=== PATIENT | female | born 1965 | race Caucasian/White ===

== ENCOUNTER → 2018-09-26 10:47 | Outpatient (CLI) | payer OTHER, SELFPAY ==
--- NOTE | 2018-09-26 10:51 | DI.RAD.S_ITS ---
PROCEDURE: XR CHEST 2V INDICATIONS: cough and LLL rales/wheezing TECHNIQUE: 2 views of the chest were acquired. COMPARISON: None. FINDINGS: Surgical changes and devices: None. Lungs and pleura: No pleural effusions or pneumothorax. Lungs are abnormal with an interstitial prominence, mild in severity, potentially a manifestation of prior smoking. Note is made on the lateral view of large lung volumes. Mediastinum: Mediastinal contours are normal. Heart size is normal. Bones and chest wall: No suspicious bony abnormalities. Soft tissues appear unremarkable. IMPRESSION: Large lung volumes, mild interstitial prominence, and an area of consolidative pneumonia is not seen. Dictated by: Tone Mckeon M.D. on 09/26/2018 at 11:26 Approved by: Tone Mckeon M.D. on 09/26/2018 at 11:27
== END ==
PROVIDERS: Visit Provider Physician Assistant
DX: R05 Cough (principal); R06.2 Wheezing; R09.89 Other specified symptoms and signs involving the circulatory and respiratory systems
CPT/HCPCS: 71046

== ENCOUNTER → 2019-09-02 19:55 | Outpatient (CLI) | payer OTHER, SELFPAY | PROVIDERS: Visit Provider Physician Assistant | DX: M54.5 Low back pain (principal) | CPT/HCPCS: 87086 ==

== ENCOUNTER → 2019-09-14 15:16 | Outpatient (ROUT) | payer OTHER, SELFPAY ==
[2019-09-14 19:11] LABS: Add Manual Diff / Slide Review NO; Basophils Absolute Auto 100 /uL (0-100); Basophils Percent Auto 0.7 % (0-2); Eosinophils Absolute Auto 200 /uL (0-450); Eosinophils Percent Auto 2.4 % (2-4); Hematocrit 40.5 % (36-46); Lymphocytes Absolute Auto 2500 /uL (1100-4500); Lymphocytes Percent Auto 30.5 % (25-40); Mean Corpuscular HGB Conc 34.6 % (30-36); Mean Corpuscular Hemoglobin 32.2 PG (26-34); Mean Corpuscular Volume 92.9 fL (80-100); Monocytes Absolute Auto 500 /uL (0-900); Monocytes Percent Auto 5.9 % (3-14); Neutrophils Absolute Auto 5000 /uL (1500-7000); Neutrophils Percent Auto 60.5 % (50-75); Platelet Count 343 X10^3/uL (150-400); Red Blood Cell Count 4.36 X10^6/uL (4.0-5.2); Red Cell Distribution Width 13.4 % (11.6-14.8); White Blood Cell Count 8.3 X10^3/uL (4.5-11.0)
[2019-09-14 19:15] LABS: Alanine Aminotransferase 29 IU/L (<35); Albumin 4.6 g/dL (3.5-5.0); Albumin Globulin Ratio 1.9 (1.0-2.8); Alkaline Phosphatase 72 U/L (38-126); Aspartate Aminotransferase 26 IU/L (14-36); BUN Creatinine Ratio 36.7 (6-22); Bilirubin Total 0.4 mg/dL (0.2-1.3); Blood Urea Nitrogen 22 mg/dL (7-17); Calcium 10.5 mg/dL (8.4-10.2); Carbon Dioxide 29 mmol/L (22-32); Chloride 102 mmol/L (98-107); Estimated Glomerular Filt Rate > 60.0 mL/min (>60); Globulin 2.4 g/dL (1.7-4.1); Glucose 103 mg/dL (70-100); HEMOLYSIS < 15 (0-50); Sodium 141 mmol/L (137-145)
[2019-09-14 19:46] LABS: Cancer Antigen 125 < 6 U/mL (0-35)
== END ==
PROVIDERS: Visit Provider Physician Assistant
DX: R39.9 Unspecified symptoms and signs involving the genitourinary system (principal); R10.2 Pelvic and perineal pain; R14.0 Abdominal distension (gaseous)
CPT/HCPCS: 80053; 85025; 86304; 87086

== ENCOUNTER → 2019-09-15 07:01 | Outpatient (CLI) | payer OTHER, SELFPAY ==
--- NOTE | 2019-09-15 | DI.US.S_ITS ---
PROCEDURE: US PELVIC COMPLETE INDICATIONS: PAIN TECHNIQUE: Real-time scanning was performed of the pelvic organs, with image documentation. Additional endovaginal scanning was necessary due to incomplete visualization of the adnexal and endometrial structures by transabdominal scanning. COMPARISON: None. FINDINGS: Transabdominal scanning: Limited scanning through the kidneys shows no hydronephrosis. No pathologic free abdominal or pelvic fluid. Endovaginal scanning: Uterus: The uterus is surgically absent. Ovaries: The ovaries are nonvisualized. IMPRESSION: Markedly limited study. If further characterization of the pelvis is warranted, gynecologic protocol MRI could be used. Dictated by: Julissa Herbert M.D. on 09/15/2019 at 9:55 Approved by: Julissa Herbert M.D. on 09/15/2019 at 9:56
--- NOTE | 2019-09-15 | DI.US.S_ITS ---
PROCEDURE: US ABDOMEN COMPLETE INDICATIONS: PAIN TECHNIQUE: Real-time scanning was performed of the abdominal and retroperitoneal organs, with image documentation. COMPARISON: None. FINDINGS: Liver: Liver is normal in size and homogeneous in echotexture. Gallbladder: The lateral wall measures 1.1 mm in diameter. No stones, sludge, pericholecystic fluid, or sonographic Ham sign. Biliary ducts: Intrahepatic bile ducts are non-dilated. Extrahepatic bile duct caliber measures 6.1 mm. Normal is 6-7 mm or less in diameter, or 10 mm or less post-cholecystectomy. Pancreas: Visualized portions of the pancreas are sonographically normal. Spleen: Spleen is normal in size and homogeneous in echotexture. Kidneys: Kidneys are normal in size and echotexture. Right kidney measures 11.4 cm long; left kidney measures 10.6 cm long. No hydronephrosis. There is a 1.5 cm nonobstructing stone within the inferior right renal collecting system and a 0.9 cm nonobstructing stone within the left inferior collecting system. Aorta: Visualized aorta is normal in caliber at less than 3 cm. Iliacs: Proximal common iliac arteries are normal in caliber at less than 2.5 cm. IVC: Intrahepatic inferior vena cava is patent. Miscellaneous: No free abdominal fluid. IMPRESSION: 1. Bilateral nonobstructing nephrolithiasis. 2. No hydronephrosis. Dictated by: Julissa Herbert M.D. on 09/15/2019 at 9:54 Approved by: Julissa Herbert M.D. on 09/15/2019 at 9:55
== END ==
PROVIDERS: PCP Physician Assistant; Visit Provider Physician Assistant
DX: R10.2 Pelvic and perineal pain (principal); N20.0 Calculus of kidney; Z90.710 Acquired absence of both cervix and uterus
CPT/HCPCS: 76700; 76830; 76856

== ENCOUNTER → 2019-10-09 14:52 | Outpatient (ROUT) | payer OTHER, SELFPAY ==
[2019-10-09 15:26] LABS: Add Manual Diff / Slide Review NO; Basophils Absolute Auto 0 /uL (0-100); Basophils Percent Auto 0.9 % (0-2); Eosinophils Absolute Auto 200 /uL (0-450); Eosinophils Percent Auto 2.8 % (2-4); Hematocrit 41.3 % (36-46); Lymphocytes Absolute Auto 1900 /uL (1100-4500); Lymphocytes Percent Auto 34.7 % (25-40); Mean Corpuscular HGB Conc 33.9 % (30-36); Mean Corpuscular Hemoglobin 31.9 PG (26-34); Monocytes Absolute Auto 400 /uL (0-900); Monocytes Percent Auto 7.5 % (3-14); Neutrophils Absolute Auto 3000 /uL (1500-7000); Neutrophils Percent Auto 54.1 % (50-75); Platelet Count 287 X10^3/uL (150-400); Red Blood Cell Count 4.39 X10^6/uL (4.0-5.2); Red Cell Distribution Width 13.4 % (11.6-14.8); White Blood Cell Count 5.5 X10^3/uL (4.5-11.0)
[2019-10-09 15:32] LABS: Alanine Aminotransferase 31 IU/L (<35); Albumin 4.6 g/dL (3.5-5.0); Albumin Globulin Ratio 1.7 (1.0-2.8); Alkaline Phosphatase 54 U/L (38-126); Aspartate Aminotransferase 25 IU/L (14-36); Bilirubin Total 0.5 mg/dL (0.2-1.3); Blood Urea Nitrogen 19 mg/dL (7-17); Calcium 9.9 mg/dL (8.4-10.2); Carbon Dioxide 27 mmol/L (22-32); Chloride 102 mmol/L (98-107); Cholesterol 203 mg/dL (140-199); Estimated Glomerular Filt Rate > 60.0 mL/min (>60); Globulin 2.7 g/dL (1.7-4.1); Glucose 98 mg/dL (70-100); HDL Cholesterol 79 mg/dL (40-60); HEMOLYSIS 16 (0-50); LDL Cholesterol Calculated 114 mg/dL (<100); Potassium 4.6 mmol/L (3.4-5.1); Sodium 141 mmol/L (137-145); Total Protein 7.3 g/dL (6.3-8.2); Triglycerides 49 mg/dL (35-150)
[2019-10-09 15:53] LABS: Vitamin D 25 Hydroxy (D3) 45.8 ng/mL (30.0-100.0)
== END ==
PROVIDERS: PCP Physician Assistant; Visit Provider Physician Assistant
DX: R53.83 Other fatigue (principal); E78.2 Mixed hyperlipidemia; E55.9 Vitamin D deficiency, unspecified
CPT/HCPCS: 80053; 80061; 82306; 84443; 85025

== ENCOUNTER → 2020-03-29 14:31 | Outpatient (CLI) | payer OTHER, SELFPAY ==
[2020-03-29 14:41] LABS: Bacteria Urine None Seen
[2020-03-29 15:11] LABS: Appearance Urine UA CLEAR; Bilirubin Urine UA NEGATIVE (NEGATIVE); Color Urine UA YELLOW; Glucose Urine UA NEGATIVE (Negative); Ketones Urine UA NEGATIVE (NEGATIVE); Leukocyte Esterase Urine UA TRACE (NEGATIVE); Nitrite Urine UA NEGATIVE (Negative); Occult Blood Urine UA TRACE-LYSED (Negative); Protein Urine UA NEGATIVE (Negative); Urobilinogen Urine UA 0.2 E.U./dL (0.2)
[2020-03-29 15:15] LABS: RBC Urine 0-1/HPF (0-5/HPF); Squamous Epithelial Cell Urine 5-10 /HPF (0-5/HPF); WBC Urine 0-1/HPF (0-5/HPF)
== END ==
PROVIDERS: PCP Physician Assistant; Referring Provider Physician Assistant; Visit Provider Physician Assistant
DX: N30.00 Acute cystitis without hematuria (principal)
CPT/HCPCS: 81001; 87086

== ENCOUNTER → 2020-04-05 18:34 | Outpatient (ROUT) | payer OTHER, SELFPAY ==
[2020-04-05 19:42] LABS: Alanine Aminotransferase 22 IU/L (<35); Albumin 4.8 g/dL (3.5-5.0); Alkaline Phosphatase 65 U/L (38-126); Aspartate Aminotransferase 23 IU/L (14-36); BUN Creatinine Ratio 35.8 (6-22); Bilirubin Total 0.5 mg/dL (0.2-1.3); Blood Urea Nitrogen 19 mg/dL (7-17); Calcium 10.3 mg/dL (8.4-10.2); Carbon Dioxide 22 mmol/L (22-32); Chloride 106 mmol/L (98-107); Estimated Glomerular Filt Rate > 60.0 mL/min (>60); Globulin 2.4 g/dL (1.7-4.1); Glucose 85 mg/dL (70-100); HEMOLYSIS < 15 (0-50); Magnesium 1.9 mg/dL (1.6-2.3); Potassium 4.2 mmol/L (3.4-5.1); Sodium 138 mmol/L (137-145); Total Protein 7.2 g/dL (6.3-8.2)
[2020-04-05 19:44] LABS: C-Reactive Protein Quant < 0.5 mg/dL (<1.0)
[2020-04-05 20:07] LABS: Add Manual Diff / Slide Review NO; Basophils Absolute Auto 0 /uL (0-100); Basophils Percent Auto 0.8 % (0-2); Eosinophils Absolute Auto 200 /uL (0-450); Eosinophils Percent Auto 3.5 % (2-4); Hematocrit 43.7 % (36-46); Hemoglobin 14.4 g/dL (12.0-16.0); Lymphocytes Absolute Auto 2000 /uL (1100-4500); Lymphocytes Percent Auto 32.3 % (25-40); Mean Corpuscular HGB Conc 33.1 % (30-36); Mean Corpuscular Hemoglobin 31.1 PG (26-34); Mean Corpuscular Volume 94.1 fL (80-100); Monocytes Absolute Auto 400 /uL (0-900); Monocytes Percent Auto 6.4 % (3-14); Neutrophils Absolute Auto 3500 /uL (1500-7000); Platelet Count 311 X10^3/uL (150-400); Red Blood Cell Count 4.64 X10^6/uL (4.0-5.2); White Blood Cell Count 6.1 X10^3/uL (4.5-11.0)
[2020-04-05 20:48] LABS: Erythrocyte Sedimentation Rate 2 MM/HR (0-20)
== END ==
PROVIDERS: PCP Physician Assistant; Visit Provider Physician Assistant
DX: R10.9 Unspecified abdominal pain (principal); N20.0 Calculus of kidney; R00.2 Palpitations; R51 Headache; M79.10 Myalgia, unspecified site
CPT/HCPCS: 80053; 83735; 84443; 85025; 85651; 86140

== ENCOUNTER → 2020-04-09 09:30 | Outpatient (CLI) | payer OTHER, SELFPAY ==
--- NOTE | 2020-04-09 | DI.US.S_ITS ---
PROCEDURE: US ABDOMEN COMPLETE INDICATIONS: Unspecified abdominal pain TECHNIQUE: Real-time scanning was performed of the abdominal and retroperitoneal organs, with image documentation. COMPARISON: [facility], , US ABDOMEN COMPLETE, 09/15/2019, 7:20. FINDINGS: Liver: Liver is normal in size and homogeneous in echotexture. Gallbladder: No findings of gallstones or sludge are seen. The gallbladder wall is not thickened, measuring 3 mm or less. No specific pericholecystic fluid is seen. The sonographic Ham sign is negative. Biliary ducts: Intrahepatic bile ducts are non-dilated. Extrahepatic bile duct caliber measures 7 mm. Normal is 6-7 mm or less in diameter, or 10 mm or less post-cholecystectomy. Pancreas: Visualized portions of the pancreas are sonographically normal. Spleen: Spleen is normal in size and homogeneous in echotexture. Kidneys: Kidneys are normal in size and echotexture. Right kidney measures 11.4 cm long; left kidney measures 10.6 cm long. No hydronephrosis. No solid masses. On the left at the inferior pole, there is a 1 cm shadowing stone seen. On the right, there is a 1.6 cm flattening stone seen inferiorly. Aorta: Visualized aorta is normal in caliber at less than 3 cm. Iliacs: Proximal common iliac arteries are normal in caliber at less than 2.5 cm. IVC: Intrahepatic inferior vena cava is patent. Miscellaneous: No free abdominal fluid. IMPRESSION: Bilateral nonobstructing kidney stones are seen. No hydronephrosis. If it would be helpful for clinical management decision making, please consider a dedicated noncontrast CT of the abdomen and pelvis for further evaluation. The gallbladder demonstrates a normal sonographic appearance. No biliary dilatation is seen. Dictated by: Kadeem Camacho M.D. on 04/09/2020 at 10:17 Approved by: Kadeem Camacho M.D. on 04/09/2020 at 10:19
== END ==
PROVIDERS: PCP Physician Assistant; Referring Provider Physician Assistant; Visit Provider Physician Assistant
DX: R10.9 Unspecified abdominal pain (principal); N20.0 Calculus of kidney
CPT/HCPCS: 76700

== ENCOUNTER → 2020-05-22 14:29 | Outpatient (CLI) | payer OTHER, SELFPAY ==
--- NOTE | 2020-05-22 14:31 | DI.CT.S_ITS ---
PROCEDURE: CT ABDOMEN PELVIS WO CON INDICATIONS: Calculus of kidney TECHNIQUE: Noncontrast 5 mm thick sections acquired from the diaphragms to the symphysis. 5 mm coronal and sagittal reformats were then performed. For radiation dose reduction, the following was used: automated exposure control, adjustment of mA and/or kV according to patient size. COMPARISON: [facility], , US ABDOMEN COMPLETE, 04/09/2020, 9:56. FINDINGS: Image quality: Excellent. ABDOMEN: Lung bases: Lung bases are clear. Heart size is normal. Solid organs: Liver is normal in size. Gallbladder appears contracted . Pancreas is normal in contours. Spleen is normal in size. No adrenal nodules. Kidneys are normal in size, without hydronephrosis but there is bilateral nephrolithiasis best seen at the lower 3rd of each kidney within the collecting system, nonobstructive, where the largest calculus on the right measures up to 1.6 cm and on the left measures up to 0.5 cm. Additional smaller calculi on the right are present more superiorly, measuring 1 mm in diameter and also nonobstructive.. Peritoneum and bowel: Unenhanced bowel loops demonstrate normal wall thickness and caliber. No free fluid or air. Nodes and vessels: No retroperitoneal or mesenteric adenopathy by size criteria. Aorta and inferior vena cava are normal in caliber. Miscellaneous: No ventral hernias. PELVIS: Genitourinary: Bladder wall thickness is normal. Miscellaneous: No inguinal hernias or adenopathy. Bones: No suspicious bony lesions. No vertebral body compression fractures. IMPRESSION: Finding of bilateral renal collecting system calculi, larger on the right than the left as discussed, none of which appear to produce obstructive influence on the collecting system. No ureteral or bladder calculus is found. Dictated by: Tone Mckeon M.D. on 05/22/2020 at 16:30 Approved by: Tone Mckeon M.D. on 05/22/2020 at 16:34
== END ==
PROVIDERS: PCP Physician Assistant; Referring Provider Physician Assistant; Visit Provider Physician Assistant
DX: N20.0 Calculus of kidney (principal); R10.9 Unspecified abdominal pain; Z87.448 Personal history of other diseases of urinary system
CPT/HCPCS: 74176; 81002; 99214

== ENCOUNTER → 2020-06-27 11:48 | Outpatient (CLI) | payer OTHER, SELFPAY ==
--- NOTE | 2020-06-27 11:50 | DI.RAD.S_ITS ---
PROCEDURE: XR KUB INDICATIONS: kidney stone TECHNIQUE: One view of the abdomen acquired. COMPARISON: [facility], CT, CT ABDOMEN PELVIS WO CON, 05/22/2020, 14:33. FINDINGS: Surgical changes and devices: None. Bowel: Bowel gas pattern is normal. Soft tissues: 2 calcifications projected over the right kidney, largest measuring 16 mm. Solitary calcification projected over the mid pole of the left kidney measuring 9 mm.. Visualized solid organ contours appear normal in size. Bones: No suspicious bony lesions. IMPRESSION: Bilateral renal calcifications similar to prior CT scan dated 05/22/2020. Dictated by: Robbie Roger [facility] Interpreted: Tone Wilkinson MD on 06/27/2020 at 16:14 Approved by: Tone Wilkinson M.D. on 06/27/2020 at 16:31
[2020-06-27 13:21] LABS: Calcium 9.5 mg/dL (8.4-10.2); Uric Acid 4.1 mg/dL (2.5-6.2)
[2020-06-28 10:29] LABS: Parathyroid Hormone Int 35 pg/mL (15-65)
== END ==
PROVIDERS: PCP Physician Assistant; Referring Provider Specialist; Visit Provider Specialist
DX: N20.0 Calculus of kidney (principal)
CPT/HCPCS: 36415; 74018; 82310; 83970; 84550

== ENCOUNTER 2021-01-02 10:46 | Emergency (ER) | payer OTHER, SELFPAY ==
[2021-01-02] VITALS (13 sets, daily range): BP systolic 122–160; BP diastolic 58–79; PULSE 57–72; RESP 12–23; TEMP 37.3; O2SAT 95–98; BMI 32.5
--- NOTE | 2021-01-02 11:03 | DI.RAD.S_ITS ---
PROCEDURE: XR CHEST 1V INDICATIONS: chest pain TECHNIQUE: One view of the chest was acquired. COMPARISON: [facility], CR, XR CHEST 2V, 09/26/2018, 11:04. FINDINGS: Surgical changes and devices: Stable postsurgical changes from prior anterior cervical discectomy and fusion. Lungs and pleura: Lungs are clear. No pleural effusions or pneumothorax. Mediastinum: Mediastinal contours appear normal. Heart size is normal. Bones and chest wall: No suspicious bony lesions. Overlying soft tissues appear unremarkable. IMPRESSION: Chest without acute cardiopulmonary abnormalities or focal airspace disease. Dictated by: Vin Stanton M.D. on 01/02/2021 at 10:39 Approved by: Vin Stanton M.D. on 01/02/2021 at 10:40
[2021-01-02 11:09] LABS: Add Manual Diff / Slide Review NO; Basophils Absolute Auto 100 /uL (0-100); Eosinophils Absolute Auto 400 /uL (0-450); Eosinophils Percent Auto 5.9 % (2-4); Hematocrit 41.7 % (36-46); Hemoglobin 14.1 g/dL (12.0-16.0); Lymphocytes Absolute Auto 2100 /uL (1100-4500); Lymphocytes Percent Auto 29.4 % (25-40); Mean Corpuscular HGB Conc 33.8 % (30-36); Mean Corpuscular Hemoglobin 31.8 PG (26-34); Mean Corpuscular Volume 94.3 fL (80-100); Monocytes Absolute Auto 600 /uL (0-900); Monocytes Percent Auto 7.8 % (3-14); Neutrophils Absolute Auto 4000 /uL (1500-7000); Neutrophils Percent Auto 55.9 % (50-75); Platelet Count 295 X10^3/uL (150-400); Red Blood Cell Count 4.42 X10^6/uL (4.0-5.2); White Blood Cell Count 7.2 X10^3/uL (4.5-11.0)
[2021-01-02 11:14] LABS: INR 1.1 (0.9-1.3); Prothrombin Time 12.1 SECONDS (10.1-12.7)
[2021-01-02 11:17] LABS: PTT Partial Thromboplastin Tim 36 SECONDS (26.4-36.2)
[2021-01-02 11:18] LABS: Alanine Aminotransferase 22 IU/L (<35); Albumin 4.9 g/dL (3.5-5.0); Albumin Globulin Ratio 1.8 (1.0-2.8); Alkaline Phosphatase 52 U/L (38-126); Aspartate Aminotransferase 25 IU/L (14-36); BUN Creatinine Ratio 35.7 (6-22); Bilirubin Total 0.3 mg/dL (0.2-1.3); Blood Urea Nitrogen 20 mg/dL (7-17); Calcium 10.1 mg/dL (8.4-10.2); Carbon Dioxide 23 mmol/L (22-32); Chloride 105 mmol/L (98-107); Creatine Kinase 58 U/L (30-135); Estimated Glomerular Filt Rate > 60.0 mL/min (>60); Globulin 2.8 g/dL (1.7-4.1); Glucose 106 mg/dL (70-100); HEMOLYSIS < 15 (0-50); Lipase 188 U/L (23-300); Potassium 4.2 mmol/L (3.4-5.1); Sodium 139 mmol/L (137-145); Total Protein 7.7 g/dL (6.3-8.2)
[2021-01-02 11:29] LABS: Troponin I < 0.012 ng/mL (0.01-0.034)
--- NOTE | 2021-01-02 11:52 | PC.NURSE ---
patient has a history of anxiety. She has had significant stresses going on in her personal life. She also has seasonal allergies and is taking allergy medication. She was told by the clinic today that because she is having chest tightness and a runny nose that she needed to come to the ER. She denies chest pain, pressure but does state she has tightness from anxiety. Her lungs sound clear in all kennedy and does not have a cough or fever.
[2021-01-02 12:38] LABS: COVID19 -Nasal RAPID Negative (Negative)
[2021-01-02 13:31] LABS: Troponin I < 0.012 ng/mL (0.01-0.034)
--- NOTE | 2021-01-02 13:32 | ED.CHESTPAIN ---
HPI - Chest Pain General Chief Complaint: Chest Pain Stated Complaint: headache/ chest pressure /tired Time Seen by Provider: 01/02/21 13:32 Source: patient Mode of arrival: Ambulatory Limitations: no limitations History of Present Illness HPI narrative: This is a 55-year-old female comes in with complaint of anxiety, fatigue, chest pressure, headache that attempted to go see her primary care physician for schedule appointment today. When she went to check asked if she had any COVID symptoms and she has had a runny nose which she attributes to her regular seasonal allergies. Mild headache, some chest tightness for the last 2 weeks and 15. She has not had any cough cold or congestion. She denies any shortness of breath. She states the pressure seems to be worse when she is very anxious and if she is distracted she does not notice it. She has also had some insomnia. She has also had some intermittent heartburn. She denies any nausea, no vomiting, no issues with bowel movements or urination. She takes fluoxetine jail without any recent medication changes. She was going to see her physician today to discuss if they need to adjust her medications or add something for anxiety or sleep. She has a history of partial hysterectomy, C3 through C7 fusion, carpal tunnel surgery. No tobacco, 1-2 alcoholic drinks daily which she states has increased from her norm. And no illicit. Patient states that she realizes her stressors which are external and causing her anxiety will resolve but she has had some difficulty with her anxiety. Related Data Home Medications Medication Instructions Recorded Confirmed ACETAMINOPHEN (#TYLENOL) 1,000 mg PO Q4HP #0 02/21/11 10/17/20 fluoxetine [Prozac] 20 mg PO Q DAY #0 02/21/11 10/17/20 ibuprofen #0 02/21/11 10/17/20 pseudoephedrine HCl 30 mg PO Q4HP #0 02/21/11 10/17/20 fluticasone propionate 50 2 spray NASAL DAILY PRN 09/26/18 10/17/20 mcg/actuation nasal spray,suspension guaifenesin 600 mg tablet, 1,200 mg PO Q12H 09/26/18 10/17/20 extended release 12 hr magnesium 30 mg tablet 30 mg PO DAILY 05/22/20 10/17/20 Previous Rx's Medication Instructions Recorded potassium citrate 10 mEq (1,080 10 meq PO TID #270 tab 12/03/20 mg) tablet,extended release hydroxyzine HCl 25 mg PO BEDTIME PRN #14 tab 01/02/21 Allergies Allergy/AdvReac Type Severity Reaction Status Date / Time Penicillins Allergy Mild I got Verified 01/02/21 11:00 really sick Review of Systems Review of Systems ROS Unobtainable: All systems reviewed & are unremarkable except as noted in HPI and below Patient History Medical History Bilateral nephrolithiasis Calcium nephrolithiasis Depression History of nephrolithiasis History of renal colic Kidney stones Nephrolithiasis Recurrent sinusitis Surgical History H/O section H/O: hysterectomy Social History Smoking Status: Never smoker Smoking Status: Never smoker alcohol intake frequency: holidays/special occasions only Substance Use Type: does not use Exam Narrative Exam Narrative: GENERAL: Alert and oriented x three, well-nourished female in mild distress. HEENT: Head normocephalic, atraumatic, EOMI, pupils reactive, face symmetric, moist mucous membranes NECK: Supple, full range of motion CARDIOVASCULAR: Regular rate and rhythm without murmurs, rubs or gallops. Non reproducible chest pain. RESPIRATORY: Breath sounds equal bilaterally, no wheezes rales or rhonchi. ABDOMEN: Soft, nontender. Normoactive bowel sounds all 4 quadrants. No guarding or rebound, rigidity, no mass : No CVA tenderness EXTREMITIES: Normal range of motion, no clubbing or edema. Neurovascularly intact NEUROLOGICAL: Cranial nerves II through XII grossly intact. Moving all extremities SKIN: Warm, dry, no petechiae, no rashes or lesions. Initial Vital Signs Initial Vital Signs: Vital Signs Temperature 99.1 F 01/02/21 10:50 Pulse Rate 72 01/02/21 10:50 Respiratory Rate 15 01/02/21 10:50 Blood Pressure 160/79 H 01/02/21 10:50 Pulse Oximetry 98 01/02/21 10:50 Course Orders Ordered: ED Orders 01/02/21 10:57 Complete Blood Count AUTO DIFF Stat Comprehensive Metabolic Panel Stat Lipase Stat Partial Thromboplastin Time Stat Prothrombin Time INR Stat Troponin & CK Cardiac Panel Stat 01/02/21 11:03 XR chest 1V Stat EKG-12 Lead Stat 01/02/21 12:07 COVID19 -Nasal swab/Pre-Proc Stat 01/02/21 13:01 Trop I [Troponin I] Stat 01/02/21 13:47 Consult to [facility] - Telephone Diaphragm Assembler Stat Vital Signs Vital signs: Vital Signs - 8 hr 01/02/21 11:00 01/02/21 11:30 01/02/21 11:31 Pulse Rate 63 Respiratory Rate 23 14 Blood Pressure 122/58 L Pulse Oximetry 97 97 97 01/02/21 12:00 01/02/21 12:01 01/02/21 12:27 Pulse Rate 59 L 58 L 59 L Respiratory Rate 14 14 22 Blood Pressure 150/65 H 150/65 H Pulse Oximetry 95 96 96 01/02/21 12:30 01/02/21 13:00 01/02/21 13:30 Pulse Rate 58 L 57 L 59 L Respiratory Rate 14 15 14 Blood Pressure 135/65 147/69 H 140/67 Pulse Oximetry 96 98 97 01/02/21 14:00 01/02/21 14:30 Pulse Rate 58 L 60 Respiratory Rate 14 15 Blood Pressure 129/61 125/74 Pulse Oximetry 97 97 MDM - Chest Pain Lab Data Attestation: I reviewed the patient's lab results. Result diagrams: 01/02/21 10:57 01/02/21 10:57 Labs: Lab Results 01/02/21 01/02/21 01/02/21 Range/Units 10:57 10:57 10:57 WBC 7.2 (4.5-11.0) X10^3/uL RBC 4.42 (4.0-5.2) X10^6/uL Hgb 14.1 (12.0-16.0) g/dL Hct 41.7 (36-46) % MCV 94.3 (80-100) fL MCH 31.8 (26-34) PG MCHC 33.8 (30-36) % RDW 13.0 (11.6-14.8) % Plt Count 295 (150-400) X10^3/uL Neut % (Auto) 55.9 (50-75) % Lymph % (Auto) 29.4 (25-40) % Putnam % (Auto) 7.8 (3-14) % Eos % (Auto) 5.9 H (2-4) % Baso % (Auto) 1.0 (0-2) % Neut # (Auto) 4000 (7110-9598) /uL Lymph # (Auto) 2100 (6984-2756) /uL Putnam # (Auto) 600 (0-900) /uL Eos # (Auto) 400 (0-450) /uL Baso # (Auto) 100 (0-100) /uL PT 12.1 (10.1-12.7) SECONDS INR 1.1 (0.9-1.3) APTT 36 (26.4-36.2) SECONDS Sodium 139 (137-145) mmol/L Potassium 4.2 (3.4-5.1) mmol/L Chloride 105 (98-107) mmol/L Carbon Dioxide 23 (22-32) mmol/L BUN 20 H (7-17) mg/dL Creatinine 0.56 (0.52-1.04) mg/dL Estimated GFR > 60.0 (>60) mL/min BUN/Creatinine Ratio 35.7 H (6-22) Glucose 106 H (70-100) mg/dL Calcium 10.1 (8.4-10.2) mg/dL Total Bilirubin 0.3 (0.2-1.3) mg/dL AST 25 (14-36) IU/L ALT 22 (<35) IU/L Alkaline Phosphatase 52 (38-126) U/L Total Creatine Kinase 58 (30-135) U/L CK-MB (CK-2) TNP CK-MB (CK-2) Rel Index TNP Troponin I < 0.012 (0.01-0.034) ng/mL Total Protein 7.7 (6.3-8.2) g/dL Albumin 4.9 (3.5-5.0) g/dL Globulin 2.8 (1.7-4.1) g/dL Albumin/Globulin Ratio 1.8 (1.0-2.8) Lipase 188 (23-300) U/L SARS-CoV-2 (PCR) (Negative) 01/02/21 01/02/21 Range/Units 12:07 13:01 WBC (4.5-11.0) X10^3/uL RBC (4.0-5.2) X10^6/uL Hgb (12.0-16.0) g/dL Hct (36-46) % MCV (80-100) fL MCH (26-34) PG MCHC (30-36) % RDW (11.6-14.8) % Plt Count (150-400) X10^3/uL Neut % (Auto) (50-75) % Lymph % (Auto) (25-40) % Putnam % (Auto) (3-14) % Eos % (Auto) (2-4) % Baso % (Auto) (0-2) % Neut # (Auto) (1310-5433) /uL Lymph # (Auto) (9141-6636) /uL Putnam # (Auto) (0-900) /uL Eos # (Auto) (0-450) /uL Baso # (Auto) (0-100) /uL PT (10.1-12.7) SECONDS INR (0.9-1.3) APTT (26.4-36.2) SECONDS Sodium (137-145) mmol/L Potassium (3.4-5.1) mmol/L Chloride (98-107) mmol/L Carbon Dioxide (22-32) mmol/L BUN (7-17) mg/dL Creatinine (0.52-1.04) mg/dL Estimated GFR (>60) mL/min BUN/Creatinine Ratio (6-22) Glucose (70-100) mg/dL Calcium (8.4-10.2) mg/dL Total Bilirubin (0.2-1.3) mg/dL AST (14-36) IU/L ALT (<35) IU/L Alkaline Phosphatase (38-126) U/L Total Creatine Kinase (30-135) U/L CK-MB (CK-2) CK-MB (CK-2) Rel Index Troponin I < 0.012 (0.01-0.034) ng/mL Total Protein (6.3-8.2) g/dL Albumin (3.5-5.0) g/dL Globulin (1.7-4.1) g/dL Albumin/Globulin Ratio (1.0-2.8) Lipase (23-300) U/L SARS-CoV-2 (PCR) Negative (Negative) Imaging Data Chest x-ray: Radiologist's Impression: Chart Viewer Diagnostics DATE TYPE STATUS REF RANGE/AUTHOR Hx Today 11:03 Vin Stanton 06/27/20 11:50 WilkinsonHarpreet srivastavajesu 05/22/20 14:31 Tone Mckeon 04/09/20 00:00 Kadeem Camacho 09/15/19 00:00 Kiviat,Julissa 09/15/19 00:00 Kiviat,Julissa 09/26/18 10:51 Tone Mckeon Alondra Kendall 55, F0 1965 [facility], [facility] ED R12 157.48cm 80.739kg BMI: 32.6kg/m? Chest Pain Search Chart No Data to Display NonFormulary Not Included in Conflicts I got really sick ONSET Today 12:30 Alondra Kendall 55 F [address] [address]IK[place] ReportSigned Patient: Alondra Kendall AMR#: [id number]: 1965Acct:[id number]/Sex: 55 / FDate of Service: 01/02/21Loc: EDAccession Number: [id number] Procedure: XR chest 1V Ordering Provider: Aleyda Morales D.O. PROCEDURE: XR CHEST 1V INDICATIONS: chest pain TECHNIQUE: One view of the chest was acquired. COMPARISON: [facility], , XR CHEST 2V, 09/26/2018, 11:04. FINDINGS: Surgical changes and devices: Stable postsurgical changes from prior anterior cervical discectomy and fusion. Lungs and pleura: Lungs are clear. No pleural effusions or pneumothorax. Mediastinum: Mediastinal contours appear normal. Heart size is normal. Bones and chest wall: No suspicious bony lesions. Overlying soft tissues appear unremarkable. IMPRESSION: Chest without acute cardiopulmonary abnormalities or focal airspace disease. Dictated by: Vin Stanton M.D. on 01/02/2021 at 10:39 Approved by: Vin Stanton M.D. on 01/02/2021 at 10:40 ECG Data Attestation: I personally reviewed and interpreted this ECG as follows: Interpretation: Sinus rhythm rate of 61 P are 116 QRS is 78 QTC of 420. No acute ST-elevation depression noted. MDM Narrative Medical decision making narrative: Complaint of chest discomfort but really came because she has had increasing anxiety and was told to come here because she had COVID symptoms and could not be seen in the office at her scheduled appointment. Patient's EKG, chest x-ray and labs do not show any acute changes. Troponins negative x2. Patient's COVID swab is negative. We discussed and she is open to talking or social work about some possible resources such as counseling. Patient and I also discussed options to help her with sleep as she feels her insomnia may be worsening her anxiety. We discussed melatonin [id number] or attempting hydroxyzine as needed. We also discussed that talking with her physician about altering her medications or adding some may be helpful. Patient also met with [employer] for resources as she was unable to see her physician today. They are going to contact after they check insurance and give her options. Discharge Plan Departure Patient Disposition: Home Clinical Impression: Atypical chest pain, Anxiety Instructions: DI for Atypical Chest Pain Activity Restrictions/Additional Instructions: Follow-up with your physician this week for recheck. Discussed with office when they can reschedule your appointment. You may take melatonin [id number] 30 minutes prior to sleep which may be helpful. This can cause very vivid dreams. If you prefer not to take melatonin he can try hydroxyzine 1 tablet 20 30 minutes prior to sleep. This medication can make you feel groggy the next day. Prescription to [facility] in [place]. Please return for fevers, new chest pain, shortness of breath, lightheadedness or passing out, if your anxiety is worsening and you are having suicidal thoughts or thoughts of harming yourself and others, or other new or concerning symptoms. Prescriptions: New hydroxyzine HCl 25 mg tablet 25 mg PO BEDTIME PRN (Reason: insomnia) Qty: 14 RF: 0 No Action fluticasone propionate 50 mcg/actuation spray,suspension 2 spray NASAL DAILY PRNRF: 0 guaifenesin [Mucinex] 600 mg tablet extended release 12hr 1,200 mg PO Q12H RF: 0 fluoxetine [Prozac] 40 MG capsule 20 mg PO Q DAY Qty: 0 RF: 0 ACETAMINOPHEN (#TYLENOL) 1,000 mg PO Q4HP Qty: 0 RF: 0 ibuprofen 200 MG tablet Qty: 0 RF: 0 pseudoephedrine HCl 30 MG tablet 30 mg PO Q4HP Qty: 0 RF: 0 magnesium 30 mg tablet 30 mg PO DAILY RF: 0 potassium citrate 10 mEq (1,080 mg) tablet extended release 10 meq PO TID Qty: 270 RF: 3 Referrals: Bernie Wagner PA-C [Primary Care Provider] -
--- NOTE | 2021-01-02 14:45 | CM.SWNOTE ---
Addendum entered by Ahsan Parks 01/02/21 16:02: ADD: Post d/c, MED SURG RN calls patient's insurance. Staff at patient's insurance inform MED SURG RN that patient's insurance does not cover any behavioral health services until deductible is met. MED SURG RN calls patient, reviews this information, and provides referral to Antwno Valdez ([place] and [facility]) for sliding-scale counseling options. PONCHO Arias Original Note: MED SURG RN Assessment MED SURG RN - Data Management Specialist Assessment MED SURG RN/Data Management Specialist Assessment Time Spent with Patient Start date 01/02/21 Visit Start Time 13:55 End date 01/02/21 Visit End Time 14:25 Total time Care Management spent on 30 patient visit-in minutes Mental Health Screening Include Onset, Duration, Intensity Presenting Problem Patient presents to this ED after attempting to go to her PCP for assistance with anxiety. Patient reports that due to her physical presentation of anxiety ( tightness in chest) and seasonal allergy symptoms, patient was sent to ED due to COVID precautions. Precipitating Event(s) Patient reports she has had a significant stressor in her life for past two years. Patient declines to provide details of the specific stressor, but explains that it is occurring in the life of someone close to her and that she recognizes she has no control over this situation. Patient Strengths Patient is seeking help for anxiety and is able to recognize when she is in need of additional support. Current Behavioral Health Provider(s) None current. Include Facility, Provider, Ph. # Psych. Hx Mental Health and Chemical Patient reports having Dependency experienced severe anxiety since age 28. Patient reports she started taking anti- depressants at this time and has been on them since. Patient currently takes Fluoxitine. Patient states she is drinking 3 drinks after work nightly due to stress and explains that she is worried that this is a slippery slope. Family Hx of Behavioral Abuse None reported. Psychiatric Hospitalizations (date(s)/ None reported. location) Psychosocial information & Support Patient is a 55 y/o female who Systems lives alone in [place]. Patient does have some family and friends around but states that she has to distance herself from them at times due to stress of current situation. 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 Legal Concerns Legal Matters - Outstanding Issues None reported. Mental Status Orientation (Person/Place/Time) Oriented x4 Stated Mood I'm good Affect (Congruent with Mood?) slightly euthymic, stable, full range, congruent with mood. Thought Content - Specify/Describe No hallucinations, obsessions, Obsessions, Delusions, Hallucinations or delusions observed or reported. Thought Processes (Sgowgtc-Gxfrxgjh-Yvvx Logical-Goal Directed Kparpmyn-Lsjafect-Toiufvuydt- Aevjmyzfcsyblu-Cirwxyp-Jzauxcetzleb- Thought Blocking) Speech (Khhhie-Sfhs-Loawiwc-Rapid-Soft- Normal Loud-Pressured) Motor (Nvdyfd-Pxfuwdqmc-Uoih-Other) Normal Insight (Axjv-Shua-Rpic/Limited) Good Judgement (Pbot-Knja-Niyl/Limited) Good Impulse Control (Adequate-Impaired) Adequate Memory (Wtscgkjps-Nrlnxh-Aslrlx, Intact for interview, not Impaired-Intact) formally assessed. Concentration (Intact-Impaired) Intact Attention (Intact-Impaired) Intact Behavior (Appropriate-Inappropriate) Appropriate. Risk Assessment Suicidal Ideation (Plan) No Homicidal Ideation (Plan) No Comment Patient denies SI/HI. Intervention Intervention MED SURG RN meets with patient. Patient explains that she came to ED today after attempting to see her PCP. Patient reports she was hoping to discuss her anxiety with her PCP but was sent here due to tightness in chest and seasonal allergy symptoms. Patient discusses current situation and that she wants to take care of myself. Patient states she is interested in in counseling but is unsure if her insurance will cover it. MED SURG RN offers to explore this and call patient after. Patient accepts and informs MED SURG RN that it is OK for MED SURG RN to leave voicemail. It is the opinion of this MED SURG RN that patient is safe for d/c to home at this time with no presence of SI, HI, or grave disability. MED SURG RN reviews this with ED Provider Dr. Morales who indicates understanding and agreement with plan to follow up with counseling resources. Plan RA Plan MED SURG RN to investigate what patient's insurance covers for outpatient counseling and will call patient to report findings. PONCHO Arias
== END 2021-01-02 14:36 | disposition home or self-care (01) ==
PROVIDERS: Emergency Provider Emergency Medicine; PCP Physician Assistant
DX: R07.89 Other chest pain (principal); F41.9 Anxiety disorder, unspecified; R53.83 Other fatigue; R51.9 Headache, unspecified; Z20.822 Contact with and (suspected) exposure to COVID-19
CPT/HCPCS: 36415; 71045; 80053; 82550; 83690; 84484; 85025; 85610; 85730; 87635; 93005; 93010; 99284; C9803

== ENCOUNTER → 2021-01-08 16:18 | Outpatient (CLI) | payer OTHER, SELFPAY ==
[2021-01-08] MEDS: COVID-19 VACC #1, MRNA(MOD) 100 MCG/0.5 ML VIAL IM (16:29)
== END ==
PROVIDERS: PCP Physician Assistant; Visit Provider Internal Medicine
DX: Z23 Encounter for immunization (principal)
CPT/HCPCS: 0011A; 91301

== ENCOUNTER → 2021-02-05 11:57 | Outpatient (CLI) | payer OTHER, SELFPAY ==
[2021-02-05] MEDS: COVID-19 VACC #2, MRNA(MOD) 100 MCG/0.5 ML VIAL IM (12:01)
== END ==
PROVIDERS: PCP Physician Assistant; Visit Provider Internal Medicine
DX: Z23 Encounter for immunization (principal)
CPT/HCPCS: 0012A; 91301

== ENCOUNTER → 2021-02-19 09:35 | Outpatient (CLI) | payer OTHER, SELFPAY ==
--- NOTE | 2021-02-19 09:37 | DI.RAD.S_ITS ---
PROCEDURE: XR KUB INDICATIONS: kidney stones TECHNIQUE: One view of the abdomen acquired. COMPARISON: [facility], CR, XR KUB, 06/27/2020, 11:41. FINDINGS: Surgical changes and devices: None. Bowel: Bowel gas pattern is normal. Soft tissues: No new suspicious abdominal calcifications. The calcifications at the middle and lower 3rd collecting system region on the right in the lower 3rd collecting system region on the left are stable over time. The largest calculus measures approximately 16 mm, lower right kidney, and a single calculus seen on the left is approximately 9 mm in diameter. The smallest calculus is approximately 4 x 5 mm middle 3rd collecting system on the right. Visualized solid organ contours appear normal in size. Bones: No suspicious bony lesions. IMPRESSION: No change in bilateral renal collecting system calculi, right greater than left. Dictated by: Tone Mckeon M.D. on 02/19/2021 at 11:16 Approved by: Tone Mckeon M.D. on 02/19/2021 at 11:18
== END ==
PROVIDERS: PCP Physician Assistant; Referring Provider Specialist; Visit Provider Specialist
DX: N20.0 Calculus of kidney (principal); Z87.442 Personal history of urinary calculi
CPT/HCPCS: 51798; 74018; 81002; 99214

== ENCOUNTER → 2021-09-09 14:00 | Outpatient (CLI) | payer OTHER, SELFPAY | PROVIDERS: PCP Internal Medicine; Visit Provider Physician Assistant | DX: R10.9 Unspecified abdominal pain (principal) | CPT/HCPCS: 87086 ==

== ENCOUNTER → 2021-09-15 14:20 | Outpatient (CLI) | payer OTHER, SELFPAY ==
[2021-09-15 16:45] LABS: Appearance Urine UA CLEAR; Bilirubin Urine UA NEGATIVE (NEGATIVE); Color Urine UA YELLOW; Glucose Urine UA NEGATIVE (Negative); Ketones Urine UA NEGATIVE (NEGATIVE); Leukocyte Esterase Urine UA 2+ (NEGATIVE); Nitrite Urine UA NEGATIVE (Negative); Occult Blood Urine UA 1+ (Negative); Protein Urine UA NEGATIVE (Negative); Urobilinogen Urine UA 0.2 E.U./dL (0.2)
[2021-09-15 17:42] LABS: Bacteria Urine Few (2-10); RBC Urine 1-5/HPF (0-5/HPF); Renal Epithelial Cells Urine 0-1/HPF (0-1/HPF); Squamous Epithelial Cell Urine 1-5 /HPF (0-5/HPF); Transitional Epi Cells Urine 5-10/HPF (0-5/HPF); WBC Urine 10-30/HPF (0-5/HPF); pH Urine UA 6.5 (4.5-8.0)
[2021-09-15 17:43] LABS: Culture Indicated Urine Specimen Cultured
== END ==
PROVIDERS: PCP Internal Medicine; Referring Provider Student in an Organized Health Care Education/Training Program; Visit Provider Student in an Organized Health Care Education/Training Program
DX: R82.81 Pyuria (principal)
CPT/HCPCS: 81001; 87086

== ENCOUNTER → 2021-09-16 11:38 | Outpatient (CLI) | payer OTHER, SELFPAY ==
[2021-09-16 12:35] LABS: Add Manual Diff / Slide Review NO; Basophils Absolute Auto 0 /uL (0-100); Basophils Percent Auto 0.9 % (0-2); Eosinophils Absolute Auto 200 /uL (0-450); Hematocrit 40.7 % (36-46); Hemoglobin 13.9 g/dL (12.0-16.0); Lymphocytes Absolute Auto 2100 /uL (1100-4500); Lymphocytes Percent Auto 36.4 % (25-40); Mean Corpuscular HGB Conc 34.2 % (30-36); Mean Corpuscular Hemoglobin 31.2 PG (26-34); Mean Corpuscular Volume 91.2 fL (80-100); Monocytes Absolute Auto 400 /uL (0-900); Monocytes Percent Auto 7.6 % (3-14); Neutrophils Absolute Auto 3000 /uL (1500-7000); Neutrophils Percent Auto 52.1 % (50-75); Platelet Count 305 X10^3/uL (150-400); Red Blood Cell Count 4.46 X10^6/uL (4.0-5.2); Red Cell Distribution Width 13.1 % (11.6-14.8); White Blood Cell Count 5.7 X10^3/uL (4.5-11.0)
[2021-09-16 13:03] LABS: Blood Urea Nitrogen 16 mg/dL (7-17); Calcium 10.2 mg/dL (8.4-10.2); Carbon Dioxide 25 mmol/L (22-32); Chloride 104 mmol/L (98-107); Estimated Glomerular Filt Rate > 60.0 mL/min (>60); Glucose 99 mg/dL (70-100); HEMOLYSIS < 15 (0-50); Potassium 4.5 mmol/L (3.4-5.1); Sodium 138 mmol/L (137-145)
== END ==
PROVIDERS: Student in an Organized Health Care Education/Training Program; PCP Internal Medicine; Referring Provider Internal Medicine; Visit Provider Internal Medicine
DX: N20.0 Calculus of kidney (principal); R31.9 Hematuria, unspecified; R31.29 Other microscopic hematuria; R39.9 Unspecified symptoms and signs involving the genitourinary system
CPT/HCPCS: 36415; 80048; 85025

== ENCOUNTER → 2021-09-18 10:20 | Outpatient (CLI) | payer OTHER, SELFPAY ==
--- NOTE | 2021-09-18 | DI.CT.S_ITS ---
PROCEDURE: CT KIDNEY URETER BLADDER (KUB) INDICATIONS: Microscopic hematuria Symptoms of urinary tract in TECHNIQUE: Axial sections were acquired from the lung bases to the pubic symphysis. Coronal and sagittal reformats were performed. For radiation dose reduction, the following was used: automated exposure control, adjustment of mA and/or kV according to patient size. COMPARISON: [facility], CT, CT ABDOMEN PELVIS WO CON, 05/22/2020, 14:33. FINDINGS: Image quality: Excellent. Lung bases: Unremarkable. Heart: No significant findings. URINARY: Right Kidney: No hydronephrosis. Nephrolithiasis, measuring up to 1.7 cm in the lower pole. Right Ureter: No hydroureter. Left Kidney: No hydronephrosis. Nephrolithiasis, measuring up to 1 cm in the lower pole. Left Ureter: No hydroureter. Bladder: Normal wall thickness. No stones. ABDOMEN: Liver: Unremarkable. Gallbladder: Unremarkable. Biliary ducts: Unremarkable. Pancreas: Unremarkable. Spleen: Unremarkable. Adrenal Glands: Unremarkable. Stomach and Bowel: Stomach, small bowel loops, and colon are unremarkable. Normal appearance of the appendix. Peritoneum: No abnormal intraperitoneal fluid. No free air. Ventral Wall: No hernia. Abdominal Nodes: No enlarged retroperitoneal or mesenteric lymph nodes. Vessels: Aorta and inferior vena cava are normal in size. PELVIS: Pelvic Organs: The uterus appears surgically absent. Pelvic Nodes: Unremarkable. Miscellaneous: No inguinal hernias are seen. Bones: Unremarkable. IMPRESSION: 1. Bilateral nephrolithiasis without evidence of obstructive uropathy. Dictated by: Angelo Naqvi M.D. on 09/18/2021 at 11:15 Approved by: Angelo Naqvi M.D. on 09/18/2021 at 11:22
== END ==
PROVIDERS: PCP Internal Medicine; Referring Provider Internal Medicine; Visit Provider Student in an Organized Health Care Education/Training Program
DX: R31.29 Other microscopic hematuria (principal); N20.0 Calculus of kidney; R39.9 Unspecified symptoms and signs involving the genitourinary system
CPT/HCPCS: 74176

== ENCOUNTER → 2022-02-11 08:20 | Outpatient (CLI) | payer OTHER, SELFPAY ==
--- NOTE | 2022-02-11 | DI.MG.S_ITS ---
BILATERAL DIGITAL SCREENING MAMMOGRAM 3D/2D WITH CAD: 02/11/2022 CLINICAL: Routine screening. Family history of breast cancer. Comparison is made to exams dated: 05/09/2015 mammogram, 03/30/2012 mammogram, and 02/03/2008 mammogram - [facility]. The tissue of both breasts is heterogeneously dense. This may lower the sensitivity of mammography. Current study was also evaluated with a Computer Aided Detection (CAD) system. There are benign calcifications in the right breast. No significant masses, calcifications, or other findings are seen in either breast. There has been no significant interval change. IMPRESSION: BENIGN There is no mammographic evidence of malignancy. A 1 year screening mammogram is recommended. This exam was interpreted at Station ID: [id number]. NOTE: For mammograms, a report in lay terms will be sent to the patient. Approximately 15% of breast malignancies will not be visualized mammographically. In the management of a palpable breast mass, a negative mammogram must not discourage biopsy of a clinically suspicious lesion. Electronically Signed By: Bijan Mendosa acr/penrad:02/11/2022 08:50:46 letter sent: Normal Exam ACR BI-RADS Category 2: Benign Finding(s) 3342F
== END ==
PROVIDERS: PCP Internal Medicine; Referring Provider Registered Nurse; Visit Provider Registered Nurse
DX: Z12.31 Encounter for screening mammogram for malignant neoplasm of breast (principal)
CPT/HCPCS: 77063; 77067

== ENCOUNTER → 2022-03-25 12:01 | Outpatient (CLI) | payer OTHER, SELFPAY | PROVIDERS: PCP Internal Medicine; Visit Provider Physician Assistant | DX: R30.0 Dysuria (principal) | CPT/HCPCS: 87086 ==

== ENCOUNTER → 2022-03-25 12:32 | Outpatient (CLI) | payer OTHER, SELFPAY ==
[2022-03-25 13:04] LABS: Add Manual Diff / Slide Review NO; Basophils Absolute Auto 100 /uL (0-100); Eosinophils Absolute Auto 600 /uL (0-450); Eosinophils Percent Auto 8.5 % (2-4); Hematocrit 40.2 % (36-46); Hemoglobin 13.8 g/dL (12.0-16.0); Lymphocytes Absolute Auto 2000 /uL (1100-4500); Lymphocytes Percent Auto 27.7 % (25-40); Mean Corpuscular HGB Conc 34.4 % (30-36); Mean Corpuscular Hemoglobin 31.7 PG (26-34); Mean Corpuscular Volume 92.1 fL (80-100); Monocytes Absolute Auto 500 /uL (0-900); Monocytes Percent Auto 7.5 % (3-14); Neutrophils Absolute Auto 4000 /uL (1500-7000); Neutrophils Percent Auto 55.3 % (50-75); Platelet Count 290 X10^3/uL (150-400); Red Blood Cell Count 4.36 X10^6/uL (4.0-5.2); Red Cell Distribution Width 12.7 % (11.6-14.8); White Blood Cell Count 7.3 X10^3/uL (4.5-11.0)
[2022-03-25 13:19] LABS: Alanine Aminotransferase 38 IU/L (<35); Albumin 4.8 g/dL (3.5-5.0); Albumin Globulin Ratio 1.8 (1.0-2.8); Alkaline Phosphatase 48 U/L (38-126); Amylase 69 U/L (30-110); Aspartate Aminotransferase 31 IU/L (14-36); BUN Creatinine Ratio 23.8 (6-22); Bilirubin Total 0.5 mg/dL (0.2-1.3); Blood Urea Nitrogen 15 mg/dL (7-17); Calcium 9.5 mg/dL (8.4-10.2); Carbon Dioxide 27 mmol/L (22-32); Chloride 103 mmol/L (98-107); Estimated Glomerular Filt Rate > 60 mL/min (>60); Globulin 2.7 g/dL (1.7-4.1); Glucose 95 mg/dL (70-100); HEMOLYSIS < 15 (0-50); Lipase 122 U/L (23-300); Potassium 4.5 mmol/L (3.4-5.1); Sodium 139 mmol/L (137-145); Total Protein 7.5 g/dL (6.3-8.2)
== END ==
PROVIDERS: PCP Internal Medicine; Referring Provider Physician Assistant; Visit Provider Physician Assistant
DX: R10.11 Right upper quadrant pain (principal); R30.0 Dysuria
CPT/HCPCS: 36415; 80053; 82150; 83690; 85025; 87086

== ENCOUNTER → 2022-03-26 14:51 | Outpatient (CLI) | payer OTHER, SELFPAY ==
--- NOTE | 2022-03-26 14:52 | DI.US.S_ITS ---
PROCEDURE: US ABDOMEN LIMITED INDICATIONS: ruq abdominal pain w/ nausea TECHNIQUE: Real-time focused scanning was performed of the abdomen, with image documentation. COMPARISON: [facility], CT, CT KIDNEY URETER BLADDER (KUB), 09/18/2021, 10:37. [facility], US, US ABDOMEN COMPLETE, 04/09/2020, 9:56. FINDINGS: The liver is enlarged. The liver demonstrates overall normal echogenicity. No findings of gallstones or sludge are seen. The gallbladder wall is not thickened, measuring 3 mm or less. There is a 5 mm gallbladder wall polyp seen. No specific pericholecystic fluid is seen. The sonographic Ham sign is negative. There is no biliary dilatation, the common bile duct measures 4-5 mm. No significant pancreatic abnormality is seen on these images. IMPRESSION: Unremarkable gallbladder. No biliary dilatation. Enlarged liver noted. Dictated by: Kadeem Camacho M.D. on 03/26/2022 at 15:17 Approved by: Kadeem Camacho M.D. on 03/26/2022 at 15:18
== END ==
PROVIDERS: PCP Internal Medicine; Referring Provider Physician Assistant; Visit Provider Physician Assistant
DX: R10.11 Right upper quadrant pain (principal); R16.0 Hepatomegaly, not elsewhere classified
CPT/HCPCS: 76705

== ENCOUNTER → 2022-12-05 14:30 | Outpatient (CLI) | payer OTHER, SELFPAY | PROVIDERS: PCP Internal Medicine; Visit Provider Nurse Practitioner Family | DX: J02.9 Acute pharyngitis, unspecified (principal) | CPT/HCPCS: 87070 ==

== ENCOUNTER → 2023-07-11 09:39 | Outpatient (CLI) | payer OTHER, SELFPAY | PROVIDERS: PCP Internal Medicine; Visit Provider Nurse Practitioner Family | DX: J02.9 Acute pharyngitis, unspecified (principal) | CPT/HCPCS: 87070; 87077 ==

== ENCOUNTER → 2023-10-22 14:44 | Outpatient (CLI) | payer OTHER, SELFPAY ==
--- NOTE | 2023-10-22 14:45 | DI.CT.S_ITS ---
PROCEDURE: CT ABDOMEN PELVIS W CON INDICATIONS: Epigastric and left flank pain TECHNIQUE: After the administration of intravenous contrast, axial sections acquired from the lung bases to the pubic symphysis. Coronal and sagittal reformats were performed. For radiation dose reduction, the following was used: automated exposure control, adjustment of mA and/or kV according to patient size. COMPARISON: [facility], CT, CT KIDNEY URETER BLADDER (KUB), 09/18/2021, 10:37. FINDINGS: Image quality: Diagnostic. Lower Chest: No significant findings. ABDOMEN: Liver: No solid mass. Steatosis. Liver is enlarged measuring 20.6 cm. Gallbladder: No radiopaque gallstones or wall thickening. Biliary ducts: No biliary dilation. Pancreas: No ductal dilation. Spleen: Size is within normal limits. Adrenal Glands: No adrenal nodules. Kidneys and Ureters: No hydronephrosis. No solid mass. No complex renal cystic lesion which requires follow up. Bilateral inferior pole calculi measuring 1.5 cm on the right, Hounsfield units 1130. 8 mm inferior left renal pole calcification, Hounsfield units 886. These are present on prior exam. Stomach and Bowel: Normal colonic caliber, without significant wall thickening. Scattered diverticular present without inflammatory change. Peritoneum: No abnormal intraperitoneal fluid. No free air. Ventral Wall: No significant ventral hernia. Abdominal Nodes: No retroperitoneal or mesenteric adenopathy by size criteria. Vessels: Aorta and inferior vena cava are normal in size. PELVIS: Pelvic Organs: Unremarkable. Bladder: No bladder wall thickening, accounting for underdistention. Pelvic Nodes: No enlarged lymph nodes. Miscellaneous: No inguinal hernias are seen. Bones: No aggressive osseous abnormality. IMPRESSION: Diverticulosis. Unchanged bilateral nonobstructing renal calculi. Dictated by: Perlita Tadeo M.D. on 10/22/2023 at 15:13 Approved by: Perlita Tadeo M.D. on 10/22/2023 at 15:23
== END ==
PROVIDERS: PCP Internal Medicine; Referring Provider Family Medicine; Visit Provider Family Medicine
DX: N20.0 Calculus of kidney (principal); K57.90 Diverticulosis of intestine, part unspecified, without perforation or abscess without bleeding; R10.9 Unspecified abdominal pain; R10.13 Epigastric pain
CPT/HCPCS: 36415; 74177; 80053; 81001; 83690; 84443; 85025

== ENCOUNTER 2023-11-16 09:43 | Day surgery (SDC) | payer OTHER, SELFPAY ==
[2023-11-16 10:02] VITALS: BP 125/77; PULSE 62; RESP 16; TEMP 36.8; O2SAT 96
[2023-11-16] MEDS: LACTATED RINGERS 1,000 ML 42 ML IV (10:12)
--- NOTE | 2023-11-16 10:22 | P.HP_ITS ---
History of Present Illness History of Present Illness Date Patient Seen: 11/16/23 Time Patient Seen: 10:22 Chief complaint: Screening Colonoscopy Narrative: 58-year-old woman here for 1st time screening colonoscopy. She reports recent history of diverticulitis and since that time she is felt bloated and constipated no fever. She did not require hospitalization. No family history of colon cancer in first-degree relatives. [facility] Medical History Kidney stones Recurrent sinusitis Depression Surgical History H/O neck surgery H/O section H/O: hysterectomy Social History Smoking Status: Former smoker alcohol intake: current Meds Home Medications and Allergies Home Medications Medication Instructions Recorded Confirmed Type fluoxetine 40 mg capsule 40 mg PO DAILY 04/04/21 10/22/23 History ondansetron 4 mg disintegrating 4 mg PO Q8H PRN nausea and 10/22/23 10/22/23 Rx tablet vomiting #30 tabs peg 3350-sod sulf,crcwv-rlc-jvb 1,000 ml PO .COMPLEX #2,000 mL 11/05/23 Rx 178.7-7.3-0.5-1.12-0.9 gram oral soln (Suflave) bupropion HCl 150 mg tablet,12 hr 150 mg PO DAILY 11/16/23 11/16/23 History sustained-release estradiol 0.075 mg/24 hr 0.075 patch transdermal DAILY 11/16/23 11/16/23 History semiweekly transdermal patch metformin 500 mg tablet,extended 500 mg PO DAILY 11/16/23 11/16/23 History release 24 hr Allergies Allergy/AdvReac Type Severity Reaction Status Date / Time Penicillins Allergy Mild I got Verified 11/16/23 09:58 really sick hydroxyzine AdvReac Intermediate Patient Verified 11/16/23 09:58 felt groggy on med. gabapentin AdvReac Unknown Cannot Verified 11/16/23 09:58 function on this med. Does not want RX'd ever. Exam Vital Signs (past 8 hours): - 11/16/23 10:02 Temperature 98.3 F Pulse Rate 62 Respiratory Rate 16 Blood Pressure 125/77 Pulse Oximetry 96 Oxygen Delivery Method Room Air Oxygen Delivery Method Room Air Narrative Exam Narrative: General adult woman alert oriented no acute distress Chest nonlabored respiration Extremities warm well perfused Assessment & Plan Assessment & Plan narrative: The patient requires colorectal screening and colonoscopy is recommended. Technical details were discussed. Risks, benefits, alternatives explained. Risks including but not limited to myocardial infarction, aspiration, bleeding, pain, missed lesion, incomplete examination, need for further radiographic studies, colonic perforation, and need for major abdominal surgery were discussed. All questions were answered to their satisfaction, and they are in agreement with this plan.
[2023-11-16 10:43] VITALS: BP 112/56; PULSE 68; RESP 14; TEMP 36.7; O2SAT 98
--- NOTE | 2023-11-16 10:48 | P.OP.COLON_ITS ---
Operative Date/Time/Diagnoses Date of procedure: 11/16/23 Time of procedure: 10:49 Pre-op diagnosis: Screening colonoscopy Procedure & Clinicians Study performed: Screening colonoscopy Same procedure as scheduled: Yes Indications: Colorectal screening Surgeon: Mateo Lora Procedure Notes Procedure in detail: The history and physical was performed/updated and the patient is ASA class is 2. The procedure was discussed in detail with the patient. Potential risks c omplications including infection, bleeding, missed diagnosis, perforation, need for surgery, and were explained. Their questions were answered and informed consent was obtained. Patient was brought to the procedure room and placed standard monitoring equipment. The patient's vital signs were monitored continuously throughout the entire procedure. Prior to starting time-out was performed. The patient was placed in the left lateral recumbent position. Procedural sedation was administered by anesthesia. Examination began with a thorough inspection of the perianal area there was no evidence of fissures, fistulae, external hemorrhoids or cutaneous malignancy. The colonoscopy scope was then placed into the anal canal and was advanced to the cecum, which was identified by the ileocecal valve, the appendiceal orifice and the confluence of the taenia. The scope was then slowly withdrawn examining colon thoroughly in all directions, irrigating it of any residual stool. The scope was retroflexed within the rectum The patient tolerated the procedure well. They will be discharged once criteria are met. The prep was of good/excellent quality. The withdrawl time was 7 minutes. FINDINGS * Unremarkable colonoscopy. No masses polyps or inflammation. * Minimal to no diverticular disease Specimen(s): none sent Impression: Normal colonoscopy Post-procedure Recommendations: Colonoscopy in 10 years and High fiber diet Disposition: same day surgery
[2023-11-16 10:50] VITALS: BP 113/65; PULSE 65; RESP 14; TEMP 36.7; O2SAT 98
[2023-11-16 10:55] VITALS: BP 126/76; PULSE 65; RESP 15; TEMP 36.6; O2SAT 98
[2023-11-16 11:14] VITALS: BP 121/72; PULSE 67; RESP 16; O2SAT 96
== END 2023-11-16 11:16 | disposition home or self-care (01) ==
PROVIDERS: PCP Internal Medicine; Referring Provider Surgery; Visit Provider Surgery
PROC: 0DJD8ZZ Inspection of Lower Intestinal Tract, Via Natural or Artificial Opening Endoscopic (ICD-10-PCS; CPT 45378; principal; 2023-11-16 10:30)
DX: Z12.11 Encounter for screening for malignant neoplasm of colon (principal); K57.30 Diverticulosis of large intestine without perforation or abscess without bleeding
CPT/HCPCS: 45378; J2704

== ENCOUNTER → 2024-02-15 15:28 | Outpatient (CLI) | payer OTHER, SELFPAY ==
--- NOTE | 2024-02-15 15:32 | DIET.OUTPTC ---
Dietary Outpatient Consultation Note Consultation Date: 02/15/2024 Assessment: 59 y F referred to dietitian for obesity, unspecified, BMI 34-34.9, adult. Alondra reports having tried diets/dieting in past w/o terminal manager success and experienced diet fatigue. Tried Keto for 2 yrs. Wants to focus on balanced eating/sustainable eating and preventing diabetes. Identified goal of wanting to menu plan for easier grocery shopping and to ensure balanced meals when she comes home from work. Prefers convenient options. Diet recall: Previous PCP suggested intermittent fasting, is currently following 28/04 cycle. Fast ends at noon: Plain arabic yogurt sweetened w/ stevia w/ fruit or cheese and fruit Evening meal: Last night sweet potato and hamburger w/ sachin bread Other various dinner choices- frozen meal (chicken pot pie), naked chicken tenders w/ frozen vegs, hamburger, spaghetti or cereal Other: snack foods: piece of chocolate, chex mix, alex tomatoes Avoids too many nuts r/t worry of kidney stones Reports being fast eater. Beverages: coffee/tea unsweetened, water, 1-2 gin, soda, [place] cocktail(s) No nutrition related food allergies reported, experiences flatulence w/ dairy intake. GI symptoms: Denies N/V/D/C, reports sporadic incidences of heartburn Labs: Reports her A1c was indicative of pre-DM in 2021 and she was hyperinsulinium. Scanned lab report shows 105 FBG and 2 hr postprandial WNL. Is going to request updated labs at next PCP visit. Related Medications: Was provided sample of Ozempic - 2 doses of 2.5, has injected one, 1 left. On Metformin 500 BID Ht: 5 ft 2 in (157.5 cm) Wt: 190lb and 6 oz (86.353 kg) BMI: 34.8 Weight History: 12/05/22: 97.522 kg 10/22/23: 86.409 kg 01/14/24: 86.353 kg (-11% weight loss in 1 yr) Pt reports scale at home today showing 85.45 kg Nutrition Diagnosis: Food and nutrition related knowledge deficit r/t no previous formal nutrition educ aeb pt report Interventions: 1. Plate Method style balanced eating -provided educ on label reading, balanced meals, meaning of lab values, macros, planning meals -Use of FL and goal setting 2. Intuitive eating -Introduction to principles/mindset Goals: 1. Begin menu planning for lunches and dinner by making list of 5-7 rotating, Plate Method based meals w/ ingredients needed from grocery store during day off work Monitoring/Evaluations: goals, diet recall, labs, weight #1 out of 6 visits approved by insurance Follow up in 1 month. Electronically Signed by: Crissy Marshall 02/15/24 15:32 Clinical Dietitian [address] [id number]
== END ==
PROVIDERS: PCP Family Medicine; Referring Provider Family Medicine
DX: E66.9 Obesity, unspecified (principal); Z68.34 Body mass index [BMI] 34.0-34.9, adult; Z71.3 Dietary counseling and surveillance
CPT/HCPCS: 97802

== ENCOUNTER → 2024-03-06 09:42 | Outpatient (CLI) | payer OTHER, SELFPAY ==
[2024-03-06 11:26] LABS: Add Manual Diff / Slide Review NO; Basophils Absolute Auto 100 /uL (0-100); Basophils Percent Auto 0.9 % (0-2); Eosinophils Absolute Auto 300 /uL (0-450); Eosinophils Percent Auto 5.3 % (2-4); Hematocrit 39.8 % (36-46); Hemoglobin 13.6 g/dL (12.0-16.0); Lymphocytes Absolute Auto 1900 /uL (1100-4500); Lymphocytes Percent Auto 29.9 % (25-40); Mean Corpuscular HGB Conc 34.3 % (30-36); Mean Corpuscular Hemoglobin 32.1 PG (26-34); Mean Corpuscular Volume 93.6 fL (80-100); Monocytes Absolute Auto 500 /uL (0-900); Monocytes Percent Auto 7.2 % (3-14); Neutrophils Absolute Auto 3700 /uL (1500-7000); Neutrophils Percent Auto 56.7 % (50-75); Platelet Count 339 X10^3/uL (150-400); Red Blood Cell Count 4.25 X10^6/uL (4.0-5.2); Red Cell Distribution Width 13.4 % (11.6-14.8); White Blood Cell Count 6.5 X10^3/uL (4.5-11.0)
[2024-03-06 11:40] LABS: Hemoglobin A1C% w Est Avg Glu 5.3 % (4.0-6.0)
[2024-03-06 11:46] LABS: Alanine Aminotransferase 21 IU/L (<35); Albumin 4.2 g/dL (3.5-5.0); Albumin Globulin Ratio 1.6 (1.0-2.8); Alkaline Phosphatase 48 U/L (38-126); Aspartate Aminotransferase 26 IU/L (14-36); BUN Creatinine Ratio 28.1 (6-22); Bilirubin Total 0.6 mg/dL (0.2-1.3); Blood Urea Nitrogen 18 mg/dL (7-17); Calcium 9.3 mg/dL (8.4-10.2); Carbon Dioxide 29 mmol/L (22-32); Chloride 108 mmol/L (98-107); Cholesterol 200 mg/dL (140-199); Estimated Glomerular Filt Rate > 60 mL/min (>60); Globulin 2.7 g/dL (1.7-4.1); Glucose 93 mg/dL (80-110); HDL Cholesterol 74 mg/dL (40-60); HEMOLYSIS < 15 (0-50); LDL Cholesterol Calculated 110 mg/dL (<100); Potassium 4.6 mmol/L (3.4-5.1); Sodium 140 mmol/L (137-145); Total Protein 6.9 g/dL (6.3-8.2); Triglycerides 79 mg/dL (35-150)
[2024-03-06 12:23] LABS: TSH w/ Reflex to FT4 1.31 uIU/mL (0.47-4.68)
[2024-03-06 12:24] LABS: Creatinine Urine Random 139.92 mg/dL
[2024-03-06 12:30] LABS: Microalbumin Urine Random 1.3 mg/dL (0-1.6)
[2024-03-07 03:36] LABS: Apolipoprotein B 91 mg/dL (<90)
== END ==
LOC: LAB 09:43
PROVIDERS: PCP Family Medicine; Referring Provider Family Medicine; Visit Provider Family Medicine
DX: F32.9 Major depressive disorder, single episode, unspecified (principal); R03.0 Elevated blood-pressure reading, without diagnosis of hypertension; R73.9 Hyperglycemia, unspecified; L72.3 Sebaceous cyst; N20.0 Calculus of kidney
CPT/HCPCS: 36415; 80053; 80061; 82043; 82172; 82570; 83036; 84443; 85025

== ENCOUNTER → 2024-03-23 15:56 | Outpatient (CLI) | payer OTHER, SELFPAY ==
--- NOTE | 2024-04-03 15:10 | DIET.OUTPTC ---
Dietary Outpatient Consultation Note Consultation Date: 04/03/2024 Assessment: 59 y F referred to dietitian for obesity, unspecified, BMI 34-34.9, adult. Alondra discussed barriers to being able to plan out meals, which include limited time and exhaustion from work. Also notes she stopped intermittent fasting and gained 10lb. Continues to be open to intuitive eating/sustainable balanced eating patterns. Still interested in trying to meal prep d/t noted satisfaction after home-cooked meal compared to quick snacks for dinner. Diet recall: B-wheat chex cereal +2% milk L-yogurt, berries, cheese, crackers, skinny popcorn D-bare chicken nuggets, frozen vegs or sometimes cereal/snacks Beverages: coffee/tea unsweetened, water, 1-2 gin, soda, [place] cocktail(s) Labs: A1c: 5.3% on 03/06/24 HDL: 74, chol 200, LDL 110 Ht: 5 ft 2 in (157.5 cm) Wt: 190lb and 6 oz (86.353 kg) BMI: 34.8 Weight History: 12/05/22: 97.522 kg 10/22/23: 86.409 kg 01/14/24: 86.353 kg (-11% weight loss in 1 yr) Nutrition Diagnosis: Food and nutrition related knowledge deficit r/t no previous formal nutrition educ aeb pt report Interventions: 1. Plate method balanced meals -Prepping protein component of meal/prepared protein option in freezer for weekdays -Reviewed label reading -Maintaining heart health w/ adequate fiber and low saturated fat options -Resource for meal ideas 2. Intuitive eating -Mindful eating, creation of sustainable eating habits, adequate intake Goals: 1. Cooked protein option at dinner, pre-prepared or frozen meat option Monitoring/Evaluations: goals, diet recall, weight #2 out of 6 visits approved by insurance Follow up in 1 month. Electronically Signed by: Crissy Marshall 04/03/24 15:10 Clinical Dietitian [address] [id number]
== END ==
PROVIDERS: PCP Family Medicine; Referring Provider Family Medicine
DX: E66.9 Obesity, unspecified (principal); Z68.34 Body mass index [BMI] 34.0-34.9, adult; Z71.3 Dietary counseling and surveillance
CPT/HCPCS: 97803

== ENCOUNTER → 2024-05-22 09:25 | Outpatient (CLI) | payer OTHER, SELFPAY | PROVIDERS: PCP Family Medicine; Visit Provider Physician Assistant Medical | DX: R30.0 Dysuria (principal) | CPT/HCPCS: 87077; 87086; 87186 ==

== ENCOUNTER → 2024-08-06 10:50 | Outpatient (CLI) | payer OTHER, SELFPAY ==
[2024-08-06 11:17] LABS: Appearance Urine UA CLEAR; Bilirubin Urine UA NEGATIVE (NEGATIVE); Color Urine UA YELLOW; Glucose Urine UA NEGATIVE (Negative); Ketones Urine UA NEGATIVE (NEGATIVE); Leukocyte Esterase Urine UA 1+ (NEGATIVE); Nitrite Urine UA POSITIVE (Negative); Occult Blood Urine UA 2+ (Negative); Protein Urine UA NEGATIVE (Negative); Specific Gravity Urine UA <=1.005 (1.000-1.035)
[2024-08-06 11:36] LABS: RBC Urine 1-5/HPF (0-5/HPF); Urine Volume 10mL (spun)
[2024-08-06 11:37] LABS: Bacteria Urine Few (2-10); Culture Indicated Urine Specimen Cultured; Squamous Epithelial Cell Urine 0-1 /HPF (0-5/HPF); WBC Urine 1-5/HPF (0-5/HPF)
== END ==
PROVIDERS: PCP Family Medicine; Visit Provider Nurse Practitioner Family
DX: R30.0 Dysuria (principal); R10.2 Pelvic and perineal pain
CPT/HCPCS: 81001; 87077; 87086; 87186

== ENCOUNTER → 2024-08-23 15:57 | Outpatient (CLI) | payer OTHER, SELFPAY ==
[2024-08-23 17:40] LABS: Appearance Urine UA CLEAR; Bilirubin Urine UA NEGATIVE (NEGATIVE); Color Urine UA YELLOW; Glucose Urine UA NEGATIVE (Negative); Ketones Urine UA NEGATIVE (NEGATIVE); Leukocyte Esterase Urine UA NEGATIVE (NEGATIVE); Nitrite Urine UA NEGATIVE (Negative); Occult Blood Urine UA NEGATIVE (Negative); Protein Urine UA NEGATIVE (Negative); Urobilinogen Urine UA 0.2 E.U./dL (0.2)
[2024-08-23 17:43] LABS: pH Urine UA 6.5 (4.5-8.0)
[2024-08-23 17:47] LABS: Bacteria Urine Few (2-10); Culture Indicated Urine Cult Not Indicated; RBC Urine 1-5/HPF (0-5/HPF); Squamous Epithelial Cell Urine 5-10 /HPF (0-5/HPF); Urine Volume 10mL (spun); WBC Urine 1-5/HPF (0-5/HPF)
== END ==
PROVIDERS: PCP Family Medicine; Referring Provider Family Medicine; Visit Provider Family Medicine
DX: R30.0 Dysuria (principal); N39.0 Urinary tract infection, site not specified
CPT/HCPCS: 81001

== ENCOUNTER → 2024-09-12 10:14 | Outpatient (CLI) | payer OTHER, SELFPAY ==
[2024-09-12 11:25] LABS: Influenza A - CEPHEID Flu A NEGATIVE (NEGATIVE); Influenza B - CEPHEID Flu B NEGATIVE (NEGATIVE); Respiratory Syncytial Virus Negative (Negative)
[2024-09-12 11:33] LABS: COVID-19 CEPHEID 4-PLEX PCR Negative (Negative)
== END ==
PROVIDERS: PCP Family Medicine; Visit Provider Nurse Practitioner Family
DX: J02.9 Acute pharyngitis, unspecified (principal); R05.1 Acute cough
CPT/HCPCS: 0241U; 87070

== ENCOUNTER → 2025-03-15 08:20 | Outpatient (CLI) | payer OTHER, SELFPAY ==
[2025-03-15 08:49] LABS: Add Manual Diff / Slide Review NO; Hematocrit 39.9 % (36-46); Hemoglobin 13.4 g/dL (12.0-16.0); Lymphocytes Absolute Auto 2000 /uL (1100-4500); Mean Corpuscular HGB Conc 33.7 % (30-36); Mean Corpuscular Hemoglobin 31.8 PG (26-34); Mean Corpuscular Volume 94.5 fL (80-100); Platelet Count 301 X10^3/uL (150-400)
[2025-03-15 09:01] LABS: Hemoglobin A1C% w Est Avg Glu 5.1 % (4.0-6.0)
[2025-03-15 09:14] LABS: Alanine Aminotransferase 27 IU/L (<35); Albumin 4.4 g/dL (3.5-5.0); Albumin Globulin Ratio 2.0 (1.0-2.8); Alkaline Phosphatase 48 U/L (38-126); Blood Urea Nitrogen 15 mg/dL (7-17); Calcium 9.4 mg/dL (8.4-10.2); Carbon Dioxide 26 mmol/L (22-32); Chloride 105 mmol/L (98-107); Cholesterol 227 mg/dL (140-199); Estimated Glomerular Filt Rate > 60 mL/min (>60); Globulin 2.2 g/dL (1.7-4.1); Glucose 102 mg/dL (70-99); HDL Cholesterol 69 mg/dL (40-60); HEMOLYSIS < 15 (0-50); Potassium 4.4 mmol/L (3.4-5.1); Sodium 140 mmol/L (137-145); Total Protein 6.6 g/dL (6.3-8.2); Triglycerides 62 mg/dL (35-150)
[2025-03-15 09:44] LABS: TSH w/ Reflex to FT4 1.99 uIU/mL (0.47-4.68)
== END ==
PROVIDERS: PCP Family Medicine; Referring Provider Family Medicine; Visit Provider Family Medicine
DX: Z13.1 Encounter for screening for diabetes mellitus (principal); F32.9 Major depressive disorder, single episode, unspecified; R73.9 Hyperglycemia, unspecified; R03.0 Elevated blood-pressure reading, without diagnosis of hypertension
CPT/HCPCS: 36415; 80053; 80061; 83036; 84443; 85025

== ENCOUNTER → 2025-08-08 08:01 | Outpatient (CLI) | payer OTHER, SELFPAY ==
--- NOTE | 2025-08-08 08:02 | DI.MG.S_ITS ---
MM screening mammo BI: 08/08/2025. BI-RADS: 0 CLINICAL: 60-year old female for bilateral screening mammogram. Tyrer-Cuzick lifetime risk of 20.2%. Current reported family history of breast cancer: mother. PRIOR EXAMS 02/11/2022, 05/09/2015. MAMMOGRAPHY TECHNIQUE: 2D and 3D (tomosynthesis) digital mammographic views obtained, with additional images as needed for full coverage. Current study was also evaluated with a Computer Aided Detection (CAD) system. DENSITY D. The breasts are extremely dense, which lowers the sensitivity of mammography. MAMMOGRAPHY FINDINGS Right: No suspicious mass, asymmetry, microcalcification, or other abnormality seen. Left: Upper Outer Quadrant, Middle depth: Architectural distortion needing additional imaging evaluation. IMPRESSION: Right * No evidence of malignancy. Left (Arch Distortion): Upper Outer Quadrant, Middle depth * Incomplete - architectural distortion needing additional imaging evaluation. RECOMMENDATIONS Left: Upper Outer Quadrant, Middle depth * Further evaluation with diagnostic mammography and diagnostic ultrasound. Ultrasound to be performed only if needed. OVERALL ASSESSMENT CATEGORY BI-RADS-0: Incomplete - Need Additional Imaging Evaluation. ELECTRONICALLY SIGNED: Tere Castellanos M.D. on 08/08/2025 at 02:23:49 PM PT Interpreting Station ID: [id number]
== END ==
LOC: MAMMO 08:02
PROVIDERS: PCP Family Medicine; Referring Provider Family Medicine; Visit Provider Family Medicine
DX: Z12.31 Encounter for screening mammogram for malignant neoplasm of breast (principal); Z80.3 Family history of malignant neoplasm of breast; R92.343 Mammographic extreme density, bilateral breasts
CPT/HCPCS: 77063; 77067

== ENCOUNTER → 2025-09-05 08:30 | Outpatient (CLI) | payer OTHER, SELFPAY ==
--- NOTE | 2025-09-05 08:30 | DI.US.S_ITS ---
US breast LT limited, MM diagnostic mammo unilat LT: 09/05/2025 BI-RADS: 4 CLINICAL: 60-year old female for left diagnostic mammogram and left diagnostic breast ultrasound that is a recall from screening on 08/08/2025. Tyrer-Cuzick lifetime risk of 20.2%. Current reported family history of breast cancer: mother. PRIOR EXAMS Mammogram(s): 08/08/2025, 02/11/2022, 05/09/2015. MAMMOGRAPHY TECHNIQUE: 2D and 3D (tomosynthesis) digital mammographic views obtained, with additional images as needed for full coverage. Current study was also evaluated with a Computer Aided Detection (CAD) system. ULTRASOUND TECHNIQUE: Left targeted breast ultrasound of the area of clinical interest and the axilla was performed with image documentation. Real-time lewis scale imaging of the area of clinical interest was performed with image documentation. DENSITY Left: D. The breast is extremely dense, which lowers the sensitivity of mammography. MAMMOGRAPHY FINDINGS Left: Outer at 3:00, Anterior depth, measuring 0.6cm. Previous report: Upper Outer Quadrant: Correlating with findings on screening mammogram there is an area of architectural distortion present. ULTRASOUND FINDINGS Left: Outer at 3:00, 4 cm from nipple. Previous report: Upper Outer Quadrant: There is no sonographic abnormality to account for imaging concern of architectural distortion on mammography. Left: Axilla: No abnormal lymph nodes are seen in the axilla. IMPRESSION: Left (Arch Distortion): Outer at 3:00, Anterior depth, measuring 0.6cm. Previous report: Upper Outer Quadrant * Suspicious findings with likelihood of malignancy. RECOMMENDATIONS Left: Outer at 3:00, Anterior depth * Stereotactic-guided biopsy for further evaluation. COMMENTS: Findings and recommendations were conveyed to the patient during today's evaluation by Dr. Roberson. OVERALL ASSESSMENT CATEGORY BI-RADS-4: Suspicious. ELECTRONICALLY SIGNED: Tere Castellanos M.D. on 09/05/2025 at 09:50:23 AM PT Interpreting Station ID: [id number]
== END ==
LOC: MAMMO 08:30
PROVIDERS: PCP Family Medicine; Referring Provider Family Medicine; Visit Provider Family Medicine
DX: R92.8 Other abnormal and inconclusive findings on diagnostic imaging of breast (principal); N63.21 Unspecified lump in the left breast, upper outer quadrant; R92.342 Mammographic extreme density, left breast; Z80.3 Family history of malignant neoplasm of breast
CPT/HCPCS: 76642; 77065; G0279